=== PATIENT | female | born 1990 | race Caucasian/White ===

== ENCOUNTER 2017-07-01 06:23 | Emergency (ER) | payer SELFPAY ==
[~2017-07-01] VITALS: Ht 167.6 cm; Wt 59.0 kg
[2017-07-01 06:54] LABS: BILIRUBIN NEGATIVE (NEGATIVE); BLOOD TRACE-INTACT (NEGATIVE); CLARITY CLOUDY (CLEAR); COLOR YELLOW (YELLOW); GLUCOSE NEGATIVE (NEGATIVE); KETONE NEGATIVE (NEGATIVE); LEUKO ESTERASE NEGATIVE (NEGATIVE); NITRITE NEGATIVE (NEGATIVE); UROBILINOGEN 0.2 E.U./dl (0.2-1.0)
[2017-07-01 07:09] LABS: URINE AMPHETAMINES < 1000 (1000ng/ml); URINE BARBITURATES < 200 (200ng/ml); URINE BENZODIAZEPINES < 200 (200ng/ml); URINE CANNABINOIDS (THC) < 50 (50ng/ml); URINE COCAINE < 300 (300ng/ml); URINE METHADONE < 300 (300ng/ml); URINE OPIATES < 300 (300ng/ml)
[2017-07-01 07:13] LABS: BACTERIA 2+; MUCOUS 2+; RBC 16-20 rbc/hpf (0-2)
[2017-07-01 07:18] LABS: BASO % 0.1 % (0.0-1.0); EOS % 0.2 % (1.0-4.0); HEMOGLOBIN 14.7 g/dl (12.0-16.0); LYMPH # 2.1 10*3/uL (1.3-4.4); LYMPH % 15.1 % (27.0-41.0); MEAN CELL VOLUME 94.4 fl (81.0-99.0); MEAN PLATELET VOLUME 9.1 fl (9.6-12.3); MONO # 0.9 10*3/uL (0.1-1.0); MONO % 6.3 % (3.0-9.0); NEUT # 10.9 10*3/uL (2.3-7.9); NEUT % 77.7 % (47.0-73.0); PLATELET COUNT AUTOMATED 239 10*3/uL (130-400); RED BLOOD COUNT 4.45 10*6/uL (4.10-5.10); RED CELL DISTRI WIDTH 12.8 % (0-14.5)
[2017-07-01 07:20] LABS: URINE PHENCYCLIDINE < 25 (25ng/ml)
[2017-07-01 07:28] LABS: ACT PARTIAL THROMBO TIME 21.6 SECONDS (20.8-31.5)
[2017-07-01 07:31] LABS: ALBUMIN 3.9 gm/dl (3.1-4.5); ALKALINE PHOSPHATASE 65 U/L (45-117); BUN 11 mg/dl (7-24); CHLORIDE 107 mmol/L (98-107); CREATININE 0.85 mg/dL (0.55-1.02); POTASSIUM 3.8 mmol/L (3.5-5.1); SGOT/AST 21 IU/L (3-35); SGPT/ALT 19 U/L (12-78); SODIUM 144 mmol/L (136-145); TOTAL PROTEIN 7.3 gm/dL (6.4-8.2)
[2017-07-01 07:40] LABS: B-hCG (QUALITATIVE) NEGATIVE (NEGATIVE); THYROID STIM HORMONE (HS) 0.952 uIU/ml (0.358-4.75)
== END 2017-07-01 10:41 | disposition home or self-care (01) ==
LOC: ED 06:23
PROVIDERS: Emergency Medicine Emergency Medical Services
DX: S01.511A Laceration without foreign body of lip, initial encounter (principal); S09.90XA Unspecified injury of head, initial encounter; F17.200 Nicotine dependence, unspecified, uncomplicated; Y08.89XA Assault by other specified means, initial encounter; Y93.89 Activity, other specified; Y92.89 Other specified places as the place of occurrence of the external cause; Y99.8 Other external cause status

== ENCOUNTER 2019-08-26 12:44 | Emergency (ER) | payer OTHER ==
[~2019-08-26] VITALS: Ht 157.4 cm; Wt 49.9 kg
[~2019-08-26 12:44] MED LIST: ALBUTEROL0.09 MG/A2 IH; BENADRYL ALLERG25 M5 PO; CEPHALEXIN500 M1 PO; DOXYCYCLINE100 M3 PO; IBU800 MG PO; PRENATAL1 TA1 PO; SEPTDS PO; VIBRAMYCIN100 MG PO; ZOFRAN ODT4 MG SL
[2019-09-27] MEDS ORDERED: ELIMITE 5%60 GM T (08:11)
== END 2019-08-26 14:00 | disposition home or self-care (01) ==
LOC: ED 12:44
DX: S93.402A Sprain of unspecified ligament of left ankle, initial encounter (principal); M54.6 Pain in thoracic spine; M25.571 Pain in right ankle and joints of right foot; F17.210 Nicotine dependence, cigarettes, uncomplicated; V80.010A Animal-rider injured by fall from or being thrown from horse in noncollision accident, initial encounter; Y93.89 Activity, other specified; Y92.89 Other specified places as the place of occurrence of the external cause; Y99.8 Other external cause status

== ENCOUNTER 2019-09-02 08:07 | Emergency (ER) | payer OTHER ==
[~2019-09-02] VITALS: Ht 157.4 cm; Wt 53.5 kg
[2019-09-02 09:17] LABS: BILIRUBIN NEGATIVE (NEGATIVE); CLARITY SL CLOUDY (CLEAR); COLOR YELLOW (YELLOW); GLUCOSE NEGATIVE (NEGATIVE); KETONE NEGATIVE (NEGATIVE)
[2019-09-02 09:18] LABS: BACTERIA 2+; BLOOD TRACE-INTACT (NEGATIVE); LEUKO ESTERASE 3+ (NEGATIVE); NITRITE POSITIVE (NEGATIVE); PH 7.5 (5.0-9.0); UROBILINOGEN 0.2 E.U./dl (0.2-1.0); WBC TNTC wbc/hpf (0-5)
[2019-09-02 10:16] LABS: BASO % 0.2 % (0.0-1.0); EOS # 0.1 10*3/uL (0.0-0.4); EOS % 1.3 % (1.0-4.0); HEMATOCRIT 38.5 % (37.0-47.0); HEMOGLOBIN 12.1 g/dl (12.0-16.0); LYMPH # 1.6 10*3/uL (1.3-4.4); LYMPH % 14.6 % (27.0-41.0); MEAN CELL VOLUME 99.2 fl (81.0-99.0); MEAN CORPUSCULAR HGB 31.2 pg (27.0-31.0); MEAN CORPUSCULAR HGB CONC 31.4 g/dl (33.0-37.0); MEAN PLATELET VOLUME 9.4 fl (9.6-12.3); MONO # 0.8 10*3/uL (0.1-1.0); MONO % 7.6 % (3.0-9.0); NEUT # 8.3 10*3/uL (2.3-7.9); NEUT % 75.8 % (47.0-73.0); PLATELET COUNT AUTOMATED 219 10*3/uL (130-400); RED BLOOD COUNT 3.88 10*6/uL (4.10-5.10); RED CELL DISTRI WIDTH 13.1 % (0-14.5)
[2019-09-02 10:31] LABS: ALBUMIN 3.3 gm/dl (3.1-4.5); ALKALINE PHOSPHATASE 66 U/L (45-117); BUN 15 mg/dl (7-24); CHLORIDE 105 mmol/L (98-107); CREATININE 0.94 mg/dL (0.55-1.02); POTASSIUM 5.1 mmol/L (3.5-5.1); SGOT/AST 27 IU/L (3-35); SGPT/ALT 32 U/L (12-78); SODIUM 137 mmol/L (136-145); TOTAL PROTEIN 6.8 gm/dL (6.4-8.2)
[2019-09-02] MEDS ORDERED: SEPTDS PO (11:30)
[2019-09-27] MEDS ORDERED: ELIMITE 5%60 GM T (08:11)
== END 2019-09-02 11:45 | disposition home or self-care (01) ==
LOC: ED 08:07
PROVIDERS: Emergency Medicine; Nurse Practitioner Family
DX: N12 Tubulo-interstitial nephritis, not specified as acute or chronic (principal); F17.210 Nicotine dependence, cigarettes, uncomplicated; Z87.442 Personal history of urinary calculi; Z79.2 Long term (current) use of antibiotics

== ENCOUNTER 2019-09-05 20:39 | Emergency (ER) | payer OTHER ==
[~2019-09-05] VITALS: Ht 162.5 cm; Wt 56.7 kg
[2019-09-05 21:07] LABS: BASO % 0.2 % (0.0-1.0); EOS # 0.2 10*3/uL (0.0-0.4); EOS % 1.7 % (1.0-4.0); HEMATOCRIT 38.6 % (37.0-47.0); HEMOGLOBIN 12.5 g/dl (12.0-16.0); LYMPH # 4.1 10*3/uL (1.3-4.4); LYMPH % 45.7 % (27.0-41.0); MEAN CELL VOLUME 97.7 fl (81.0-99.0); MEAN CORPUSCULAR HGB 31.6 pg (27.0-31.0); MEAN CORPUSCULAR HGB CONC 32.4 g/dl (33.0-37.0); MEAN PLATELET VOLUME 9.2 fl (9.6-12.3); MONO # 0.5 10*3/uL (0.1-1.0); MONO % 5.6 % (3.0-9.0); NEUT # 4.1 10*3/uL (2.3-7.9); NEUT % 46.2 % (47.0-73.0); PLATELET COUNT AUTOMATED 341 10*3/uL (130-400); RED BLOOD COUNT 3.95 10*6/uL (4.10-5.10); RED CELL DISTRI WIDTH 12.9 % (0-14.5); WHITE BLOOD COUNT 8.9 10*3/uL (4.8-10.8)
[2019-09-05 21:24] LABS: ALBUMIN 3.6 gm/dl (3.1-4.5); ALKALINE PHOSPHATASE 85 U/L (45-117); BUN 10 mg/dl (7-24); CHLORIDE 110 mmol/L (98-107); CREATININE 0.87 mg/dL (0.55-1.02); POTASSIUM 3.7 mmol/L (3.5-5.1); SGOT/AST 23 IU/L (3-35); SGPT/ALT 52 U/L (12-78); SODIUM 143 mmol/L (136-145); TOTAL PROTEIN 7.4 gm/dL (6.4-8.2)
[2019-09-05 21:27] LABS: ACETAMINOPHEN (TYLENOL) < 5.0 ug/ml (10-30)
[2019-09-27] MEDS ORDERED: ELIMITE 5%60 GM T (08:11)
== END 2019-09-06 03:45 | disposition left against medical advice (07) ==
LOC: ED 20:39
PROVIDERS: Emergency Medicine
DX: R45.851 Suicidal ideations (principal); F15.10 Other stimulant abuse, uncomplicated; F11.10 Opioid abuse, uncomplicated; F10.920 Alcohol use, unspecified with intoxication, uncomplicated; F17.200 Nicotine dependence, unspecified, uncomplicated; Z53.29 Procedure and treatment not carried out because of patient's decision for other reasons

== ENCOUNTER 2019-09-06 01:50 | Emergency (ER) | payer OTHER ==
[~2019-09-06] VITALS: Wt 59.0 kg
[2019-09-27] MEDS ORDERED: ELIMITE 5%60 GM T (08:11)
== END 2019-09-06 10:14 ==
LOC: ED 02:15
DX: F10.10 Alcohol abuse, uncomplicated (principal); F17.200 Nicotine dependence, unspecified, uncomplicated; Y90.0 Blood alcohol level of less than 20 mg/100 ml

== ENCOUNTER 2019-09-24 10:31 | Emergency (ER) | payer OTHER ==
[~2019-09-24] VITALS: Ht 157.4 cm; Wt 54.4 kg
[2019-09-24] MEDS ORDERED: ELIMITE 5%60 GM T ×2 (11:11→17:29)
[2019-09-27] MEDS ORDERED: ELIMITE 5%60 GM T (08:11)
== END 2019-09-24 11:33 | disposition home or self-care (01) ==
LOC: ED 10:31
DX: B86 Scabies (principal); F15.90 Other stimulant use, unspecified, uncomplicated; F11.90 Opioid use, unspecified, uncomplicated; F17.200 Nicotine dependence, unspecified, uncomplicated

== ENCOUNTER 2019-09-29 09:06 | Inpatient (IN) | payer OTHER ==
[~2019-09-29] VITALS: Ht 157.4 cm; Wt 59.1 kg
[~2019-09-29 09:06] MED LIST changes: +ELIMITE 5%60 GM T
[2019-09-29 09:14] VITALS: BP 114/73
[2019-09-29 09:59] LABS: BASO % 0.2 % (0.0-1.0); EOS # 0.2 10*3/uL (0.0-0.4); HEMATOCRIT 37.3 % (37.0-47.0); HEMOGLOBIN 11.9 g/dl (12.0-16.0); LYMPH # 1.2 10*3/uL (1.3-4.4); LYMPH % 9.5 % (27.0-41.0); MEAN CELL VOLUME 99.5 fl (81.0-99.0); MEAN CORPUSCULAR HGB 31.7 pg (27.0-31.0); MEAN CORPUSCULAR HGB CONC 31.9 g/dl (33.0-37.0); MEAN PLATELET VOLUME 9.6 fl (9.6-12.3); MONO % 7.8 % (3.0-9.0); NEUT # 9.7 10*3/uL (2.3-7.9); PLATELET COUNT AUTOMATED 250 10*3/uL (130-400); RED BLOOD COUNT 3.75 10*6/uL (4.10-5.10); WHITE BLOOD COUNT 12.2 10*3/uL (4.8-10.8)
[2019-09-29 10:05] LABS: BILIRUBIN NEGATIVE (NEGATIVE); BLOOD 1+ (NEGATIVE); CLARITY CLOUDY (CLEAR); COLOR STRAW (YELLOW); GLUCOSE NEGATIVE (NEGATIVE); KETONE NEGATIVE (NEGATIVE)
[2019-09-29 10:06] LABS: BACTERIA 3+; LEUKO ESTERASE NEGATIVE (NEGATIVE); NITRITE NEGATIVE (NEGATIVE); PH 7.5 (5.0-9.0); RBC 16-20 rbc/hpf (0-2); UROBILINOGEN 0.2 E.U./dl (0.2-1.0); WBC TNTC wbc/hpf (0-5)
[2019-09-29 10:14] LABS: ALBUMIN 3.1 gm/dl (3.1-4.5); ALKALINE PHOSPHATASE 68 U/L (45-117); BUN 11 mg/dl (7-24); CHLORIDE 103 mmol/L (98-107); CREATININE 0.77 mg/dL (0.55-1.02); LIPASE 129 U/L (73-393); POTASSIUM 3.9 mmol/L (3.5-5.1); SGOT/AST 15 IU/L (3-35); SGPT/ALT 23 U/L (12-78); SODIUM 137 mmol/L (136-145); TOTAL PROTEIN 6.6 gm/dL (6.4-8.2)
--- NOTE | 2019-09-29 10:59 | NUR ---
PT IS CURRENTLY HOMELESS. I HAVE TALKED TO MELBA BOLDEN AND SHE HAS PROVIDED ME WITH PHONE NUMBERS FOR PT TO CALL. SHE WILL NOT QUALIFY FOR SHELTERS SHE DOES NOT HAVE A PHOTO ID. THIS WAS EXPLAINED TO THE PT AND SHE WAS PROVIDED WITH THE PHONE NUMBERS.
[2019-09-29 12:38] LABS: URINE AMPHETAMINES < 1000 (1000ng/ml); URINE BARBITURATES < 200 (200ng/ml); URINE BENZODIAZEPINES < 200 (200ng/ml); URINE CANNABINOIDS (THC) > 50 (50ng/ml); URINE COCAINE > 300 (300ng/ml); URINE METHADONE < 300 (300ng/ml); URINE OPIATES < 300 (300ng/ml)
[2019-09-29 12:42] VITALS: BP 103/57
[2019-09-29 12:42] LABS: URINE PHENCYCLIDINE < 25 (25ng/ml)
[2019-09-29 12:51] LABS: ACETAMINOPHEN (TYLENOL) < 5.0 ug/ml (10-30); ETHYL ALCOHOL < 3.0 mg/dl (<3)
--- NOTE | 2019-09-29 12:59 | NUR ---
MSTime: 1:01 A 29 year old FEMALE admitted to 5E under services of EDDA HARE DO. Pt. arrived via bed from ER. Chief complaint: UTI, OPIATE WITHDRAWAL. CARLY BLOCK.
--- NOTE | 2019-09-29 14:00 | NUR ---
THIS NURSE SPOKE WITH MUSTAPHA FROM INFECTION CONTROL REGARDING HISTORY OF SCABIES AND ON TREATMENT CURRENTLY. PATIENT IS TO BE IN CONTACT ISOLATION UNTIL SHE APPLIES ELIMITE CREAM PER ORDER AND AFTER SHE SHOWERS SHE CAN BE OUT OF ISOLATION PER INFECTION CONTROL.
[2019-09-29 16:00] VITALS: BP 122/60
--- NOTE | 2019-09-29 16:08 | NUR ---
PATIENT MEETS [facility]. [facility] STAFF PROVIDED PATIENT WITH REFERRAL OPTIONS. PATIENT IS WANTING RESIDENTIAL TREATMENT FOR HER AFTERCARE PLAN. ZULLY VELEZ B.A. PLANT CONTROLLER
--- NOTE | 2019-09-29 17:05 | NUR ---
Patient displaying withdrawal symptoms, including: irritability, anxiousness, restlessness and agitation, complicated by impulsive behavior. Patient scores a 5 on the withdrawal scale. Scheduled/PRN medications provided, doctor notified of patient's agitation and AMA potential. Will continue to monitor medication effectiveness.
[2019-09-29 20:00] VITALS: BP 125/74
[2019-09-30] VITALS: BP 107/86
[2019-09-30 08:00] VITALS: BP 95/51
[2019-09-30 12:00] VITALS: BP 110/60
--- NOTE | 2019-09-30 14:48 | NUR ---
[facility] STAFF IN TO SEE PATIENT. PATIENT IS WANTING RESIDENTIAL TREATMENT. [facility] STAFF IS WORKING ON REFERRAL OPTIONS FOR PATIENT TO SEE WHAT IS AVAILABLE. ZULLY VELEZ B.A. ARTIFICIAL STONE APPLICATOR
[2019-09-30 16:00] VITALS: BP 107/50
--- NOTE | 2019-09-30 16:42 | NUR ---
PT WAS ALERT AND ORIENTED THIS MORNING AND EATING BREAKFAST. PT HAD VISTER AROUND 10 AM. WHEN VISITOR LEFT PATIENT WAS OBSERVED BEHAVING IN A HYPER MANNER CLEANING HER ROOM GOING IN AND OUT. MEANWHILE GERIR IN ROOM 20 CAME BACK FROM DIALYSIS AND NOTED HIS PHONE WAS MISSING AROUND 11:45. MEANWHILE PATIENT THIS PATIENT IN 419 WAS WONDERING IN AND OUT OF HER ROOM SHE SUDDENLY STATED SHE FOUND HIS PHONE VIBRATING ON THE HOUSEKEEPING CART AND ABRUPTLY RETURNED IT. NUCLEAR WASTE MANAGEMENT ENGINEER MELBA WAS NOTIFIED. SECURITY FOOTAGE WAS VIEWED AND THIS PATIENT WAS OBSERVED GOING INTO AND OUT OF [address] OTHER ROOMS. THE PATIENT BECAME AGITATED WHEN I ADVISED HER SHE WAS NOT PERMITTED TO WONDER THE HALLS (PRIOR TO SECURITY VIDEO OBSERVATION). SHE STATED SHE WAS FEELING WITHDRAWAL SYMPTOMS AND I THEN GAVE HER HER PERSCRIBED MEDICATIONS TO AID WITH HER SYMPTOMS. THE PATIENT BECAME RELAXED. AFTER SECURITY FOOTAGE WAS VIEWED NUCLEAR WASTE MANAGEMENT ENGINEER ZULLY REILLY FROM [employer] AND MYSELF INFORMED THE PATIENT THAT SHE MUST BE DISCHARGED DUE TO NONCOMPLIANCE OF HOSPITAL POLICY. THE PATIENT WHO WAS ALERT AND ORIENTED X3 AND AWARE OF HER SURROUNDINGS THEN BECAME AGITATED AND INCOSOLABLE. AFTER APPROXIMATELY 15 TO 20 MINUTES PATIENT STATED SHE HAD A RIDE AND SHE WAS ESCORTED FROM THE BUILDING BY SECURITY. SHE WAS ALERT AND ORIENTED AND AMBULATORY UPON DISCHARGE.
== END 2019-09-30 16:42 | disposition other institution (70) | DRG 463 ==
LOC: ED 09:06 → 5E 12:26 → EDHOLD 12:26 → 5E 12:40
PROVIDERS: Nurse Practitioner Family; ADMIT Family Medicine
DX: N30.00 Acute cystitis without hematuria (principal); F11.23 Opioid dependence with withdrawal; F13.10 Sedative, hypnotic or anxiolytic abuse, uncomplicated; F19.10 Other psychoactive substance abuse, uncomplicated; B86 Scabies; F10.21 Alcohol dependence, in remission; F17.210 Nicotine dependence, cigarettes, uncomplicated; F14.10 Cocaine abuse, uncomplicated; F41.9 Anxiety disorder, unspecified; F43.10 Post-traumatic stress disorder, unspecified; F90.9 Attention-deficit hyperactivity disorder, unspecified type; D64.9 Anemia, unspecified; I95.9 Hypotension, unspecified; E44.0 Moderate protein-calorie malnutrition; Z68.23 Body mass index [BMI] 23.0-23.9, adult; Z71.6 Tobacco abuse counseling; Z59.0 Homelessness

== ENCOUNTER 2020-01-13 21:53 | Emergency (ER) | payer OTHER ==
[~2020-01-13] VITALS: Ht 157.4 cm; Wt 59.9 kg
[2020-01-13 22:53] LABS: URINE AMPHETAMINES < 1000 (1000ng/ml); URINE BARBITURATES < 200 (200ng/ml); URINE BENZODIAZEPINES < 200 (200ng/ml); URINE CANNABINOIDS (THC) < 50 (50ng/ml); URINE COCAINE < 300 (300ng/ml); URINE METHADONE < 300 (300ng/ml); URINE OPIATES < 300 (300ng/ml)
[2020-01-13 22:56] LABS: URINE PHENCYCLIDINE < 25 (25ng/ml)
== END 2020-01-13 23:38 | disposition home or self-care (01) ==
LOC: ED 21:53
PROVIDERS: Nurse Practitioner Family
DX: Z01.89 Encounter for other specified special examinations (principal); F17.210 Nicotine dependence, cigarettes, uncomplicated

== ENCOUNTER 2020-01-14 14:34 | Emergency (ER) | payer OTHER ==
[~2020-01-14] VITALS: Ht 157.4 cm; Wt 59.0 kg
[2020-01-14 15:32] LABS: BASO % 0.6 % (0.0-1.0); EOS # 0.3 10*3/uL (0.0-0.4); EOS % 6.3 % (1.0-4.0); HEMATOCRIT 39.4 % (37.0-47.0); LYMPH # 1.8 10*3/uL (1.3-4.4); LYMPH % 35.7 % (27.0-41.0); MEAN CELL VOLUME 94.5 fl (81.0-99.0); MEAN CORPUSCULAR HGB 31.4 pg (27.0-31.0); MEAN CORPUSCULAR HGB CONC 33.2 g/dl (33.0-37.0); MEAN PLATELET VOLUME 8.7 fl (9.6-12.3); MONO # 0.3 10*3/uL (0.1-1.0); MONO % 6.5 % (3.0-9.0); NEUT # 2.5 10*3/uL (2.3-7.9); NEUT % 50.5 % (47.0-73.0); PLATELET COUNT AUTOMATED 206 10*3/uL (130-400); RED BLOOD COUNT 4.17 10*6/uL (4.10-5.10); RED CELL DISTRI WIDTH 13.4 % (0-14.5)
[2020-01-14 15:46] LABS: ALBUMIN 3.6 gm/dl (3.1-4.5); ALKALINE PHOSPHATASE 70 U/L (45-117); BUN 15 mg/dl (7-24); CHLORIDE 107 mmol/L (98-107); CREATININE 0.98 mg/dL (0.55-1.02); POTASSIUM 4.1 mmol/L (3.5-5.1); SGOT/AST 11 IU/L (3-35); SGPT/ALT 18 U/L (12-78); SODIUM 141 mmol/L (136-145); TOTAL PROTEIN 7.1 gm/dL (6.4-8.2)
[2020-01-14 15:50] LABS: BETA-HCG, QUANT < 1.0 mIU/mL (1-3); ETHYL ALCOHOL < 3.0 mg/dl (<3)
[2020-01-14 16:29] LABS: URINE AMPHETAMINES < 1000 (1000ng/ml); URINE BARBITURATES < 200 (200ng/ml); URINE BENZODIAZEPINES < 200 (200ng/ml); URINE CANNABINOIDS (THC) < 50 (50ng/ml); URINE COCAINE < 300 (300ng/ml); URINE METHADONE < 300 (300ng/ml); URINE OPIATES < 300 (300ng/ml); URINE PHENCYCLIDINE < 25 (25ng/ml)
== END 2020-01-14 23:40 | disposition home health service (06) ==
LOC: ED 14:34
PROVIDERS: Emergency Medicine
DX: F31.9 Bipolar disorder, unspecified (principal); Z79.899 Other long term (current) drug therapy

== ENCOUNTER 2020-01-27 16:56 | Emergency (ER) | payer OTHER ==
[~2020-01-27] VITALS: Ht 157.4 cm; Wt 61.2 kg
[2020-01-27 18:12] LABS: BACTERIA TRACE; BILIRUBIN NEGATIVE (NEGATIVE); BLOOD NEGATIVE (NEGATIVE); CLARITY CLEAR (CLEAR); COLOR YELLOW (YELLOW); GLUCOSE NEGATIVE (NEGATIVE); KETONE NEGATIVE (NEGATIVE); LEUKO ESTERASE NEGATIVE (NEGATIVE); MUCOUS TRACE; NITRITE NEGATIVE (NEGATIVE); RBC 0-2 rbc/hpf (0-2); SPECIFIC GRAVITY 1.025 (1.005-1.030); UROBILINOGEN 0.2 E.U./dl (0.2-1.0)
[2020-01-27 18:14] LABS: URINE AMPHETAMINES < 1000 (1000ng/ml); URINE BARBITURATES < 200 (200ng/ml); URINE BENZODIAZEPINES < 200 (200ng/ml); URINE CANNABINOIDS (THC) < 50 (50ng/ml); URINE COCAINE < 300 (300ng/ml); URINE METHADONE < 300 (300ng/ml); URINE OPIATES < 300 (300ng/ml)
[2020-01-27 18:18] LABS: URINE PHENCYCLIDINE < 25 (25ng/ml)
[2020-01-27] MEDS ORDERED: SEPTDS PO (19:19)
[2020-01-27] MEDS ORDERED: KEFLEX500 M1 PO (19:19)
== END 2020-01-27 20:33 | disposition left against medical advice (07) ==
LOC: ED 16:56
PROVIDERS: Nurse Practitioner
DX: S01.111A Laceration without foreign body of right eyelid and periocular area, initial encounter (principal); F17.210 Nicotine dependence, cigarettes, uncomplicated; V29.9XXA Motorcycle rider (driver) (passenger) injured in unspecified traffic accident, initial encounter; Y93.89 Activity, other specified; Y92.89 Other specified places as the place of occurrence of the external cause; Y99.8 Other external cause status

== ENCOUNTER 2020-04-03 22:09 | Emergency (ER) | payer OTHER ==
[~2020-04-03] VITALS: Ht 165.1 cm; Wt 54.4 kg
[~2020-04-03 22:09] MED LIST changes: +KEFLEX500 M1 PO
[2020-04-04] MEDS ORDERED: CEPHALEXIN500 M1 PO (16:46)
[2020-04-04] MEDS ORDERED: BACITRACIN28.4 GM T (16:46)
== END 2020-04-03 23:38 | disposition left against medical advice (07) ==
LOC: ED 22:09
DX: R10.9 Unspecified abdominal pain (principal); F41.9 Anxiety disorder, unspecified; F32.9 Major depressive disorder, single episode, unspecified; F17.200 Nicotine dependence, unspecified, uncomplicated; Z79.899 Other long term (current) drug therapy

== ENCOUNTER 2020-04-04 15:57 | Emergency (ER) | payer OTHER ==
[~2020-04-04] VITALS: Wt 56.7 kg
[2020-04-04] MEDS ORDERED: CEPHALEXIN500 M1 PO (16:46)
[2020-04-04] MEDS ORDERED: BACITRACIN28.4 GM T (16:46)
== END 2020-04-04 16:50 | disposition home or self-care (01) ==
LOC: ED 15:57
DX: T28.0XXA Burn of mouth and pharynx, initial encounter (principal); F15.10 Other stimulant abuse, uncomplicated; F14.10 Cocaine abuse, uncomplicated; F17.210 Nicotine dependence, cigarettes, uncomplicated; X08.8XXA Exposure to other specified smoke, fire and flames, initial encounter; Y93.89 Activity, other specified; Y92.89 Other specified places as the place of occurrence of the external cause; Y99.8 Other external cause status

== ENCOUNTER 2020-05-19 18:58 | Emergency (ER) | payer OTHER ==
[~2020-05-19] VITALS: Ht 157.4 cm; Wt 56.7 kg
[~2020-05-19 18:58] MED LIST changes: +BACITRACIN28.4 GM T
[2020-05-19 19:57] LABS: BASO % 0.4 % (0.0-1.0); EOS # 0.2 10*3/uL (0.0-0.4); EOS % 3.5 % (1.0-4.0); HEMATOCRIT 37.2 % (37.0-47.0); LYMPH # 2.2 10*3/uL (1.3-4.4); LYMPH % 40.1 % (27.0-41.0); MEAN CORPUSCULAR HGB 31.3 pg (27.0-31.0); MEAN CORPUSCULAR HGB CONC 35.2 g/dl (33.0-37.0); MEAN PLATELET VOLUME 9.3 fl (9.6-12.3); MONO # 0.7 10*3/uL (0.1-1.0); MONO % 12.3 % (3.0-9.0); NEUT # 2.4 10*3/uL (2.3-7.9); NEUT % 43.5 % (47.0-73.0); PLATELET COUNT AUTOMATED 344 10*3/uL (130-400); RED BLOOD COUNT 4.18 10*6/uL (4.10-5.10); RED CELL DISTRI WIDTH 12.3 % (0-14.5); WHITE BLOOD COUNT 5.4 10*3/uL (4.8-10.8)
[2020-05-19 20:13] LABS: ALBUMIN 3.9 gm/dl (3.1-4.5); ALKALINE PHOSPHATASE 63 U/L (45-117); BUN 9 mg/dl (7-24); CHLORIDE 103 mmol/L (98-107); CREATININE 1.09 mg/dL (0.55-1.02); LIPASE 64 U/L (73-393); POTASSIUM 2.7 mmol/L (3.5-5.1); SGOT/AST 24 IU/L (3-35); SGPT/ALT 30 U/L (12-78); SODIUM 139 mmol/L (136-145); TOTAL PROTEIN 7.3 gm/dL (6.4-8.2)
[2020-05-19 20:14] LABS: BETA-HCG, QUANT < 1.0 mIU/mL (1-3); ETHYL ALCOHOL < 3.0 mg/dl (<3)
[2020-05-24] MEDS ORDERED: ZOFRAN4 MG PO (16:48)
[2020-05-24] MEDS ORDERED: SEPTDS PO (16:48)
== END 2020-05-19 22:30 | disposition left against medical advice (07) ==
LOC: ED 18:58
PROVIDERS: Emergency Medicine Emergency Medical Services
DX: R10.13 Epigastric pain (principal); Z53.29 Procedure and treatment not carried out because of patient's decision for other reasons

== ENCOUNTER 2020-05-20 00:21 | Emergency (ER) | payer OTHER ==
[~2020-05-20] VITALS: Ht 157.4 cm; Wt 63.5 kg
[2020-05-20 01:45] LABS: BILIRUBIN Negative (Negative); BLOOD 1+ (Negative); COLOR Yellow (Yellow); GLUCOSE Negative (Negative); KETONE 2+ (Negative); LEUKO ESTERASE Negative (Negative); NITRITE Negative (Negative)
[2020-05-20 01:48] LABS: PH 8.5 (4.5-8.0)
[2020-05-20 01:50] LABS: CLARITY Cloudy (Clear)
[2020-05-20 01:54] LABS: URINE AMPHETAMINES > 1000 (1000ng/ml); URINE BARBITURATES < 200 (200ng/ml); URINE BENZODIAZEPINES < 200 (200ng/ml); URINE CANNABINOIDS (THC) > 50 (50ng/ml); URINE COCAINE < 300 (300ng/ml); URINE METHADONE < 300 (300ng/ml); URINE OPIATES < 300 (300ng/ml)
[2020-05-20 01:55] LABS: BACTERIA 1+; MUCOUS 2+; URINE PHENCYCLIDINE < 25 (25ng/ml)
[2020-05-21] MEDS ORDERED: SEPTDS PO (15:57)
[2020-05-21] MEDS ORDERED: ZOFRAN4 MG PO (15:57)
[2020-05-24] MEDS ORDERED: ZOFRAN4 MG PO (16:48)
[2020-05-24] MEDS ORDERED: SEPTDS PO (16:48)
== END 2020-05-20 02:40 ==
LOC: ED 00:21
PROVIDERS: Emergency Medicine Emergency Medical Services
DX: R10.9 Unspecified abdominal pain (principal); Z53.29 Procedure and treatment not carried out because of patient's decision for other reasons

== ENCOUNTER 2020-05-21 10:48 | Emergency (ER) | payer OTHER ==
[~2020-05-21] VITALS: Ht 157.4 cm; Wt 63.5 kg
[2020-05-21 11:51] LABS: BASO % 0.4 % (0.0-1.0); EOS # 0.4 10*3/uL (0.0-0.4); EOS % 7.7 % (1.0-4.0); HEMATOCRIT 39.4 % (37.0-47.0); LYMPH # 2.3 10*3/uL (1.3-4.4); LYMPH % 41.1 % (27.0-41.0); MEAN CORPUSCULAR HGB CONC 34.3 g/dl (33.0-37.0); MEAN PLATELET VOLUME 9.4 fl (9.6-12.3); MONO # 0.5 10*3/uL (0.1-1.0); MONO % 8.8 % (3.0-9.0); NEUT # 2.3 10*3/uL (2.3-7.9); NEUT % 41.6 % (47.0-73.0); PLATELET COUNT AUTOMATED 272 10*3/uL (130-400); RED BLOOD COUNT 4.22 10*6/uL (4.10-5.10); RED CELL DISTRI WIDTH 12.9 % (0-14.5); WHITE BLOOD COUNT 5.6 10*3/uL (4.8-10.8)
[2020-05-21 11:52] LABS: MEAN CELL VOLUME 93.4 fl (81.0-99.0)
[2020-05-21 11:56] LABS: ALBUMIN 3.6 gm/dl (3.1-4.5); ALKALINE PHOSPHATASE 62 U/L (45-117); BUN 11 mg/dl (7-24); CHLORIDE 105 mmol/L (98-107); POTASSIUM 2.8 mmol/L (3.5-5.1); SGOT/AST 19 IU/L (3-35); SGPT/ALT 26 U/L (12-78); SODIUM 140 mmol/L (136-145)
[2020-05-21 13:32] LABS: BILIRUBIN Negative (Negative); BLOOD 1+ (Negative); CLARITY Cloudy (Clear); COLOR Dark Yellow (Yellow); GLUCOSE Negative (Negative); KETONE Trace (Negative); LEUKO ESTERASE Negative (Negative); NITRITE Negative (Negative); PH 5.5 (4.5-8.0); SPECIFIC GRAVITY >= 1.030 (1.001-1.030)
[2020-05-21 13:39] LABS: MUCOUS 1+; RBC 0-2 rbc/hpf (0-2)
[2020-05-21 13:46] LABS: URINE AMPHETAMINES > 1000 (1000ng/ml); URINE BARBITURATES < 200 (200ng/ml); URINE BENZODIAZEPINES < 200 (200ng/ml); URINE CANNABINOIDS (THC) > 50 (50ng/ml); URINE COCAINE < 300 (300ng/ml); URINE METHADONE < 300 (300ng/ml); URINE OPIATES > 300 (300ng/ml)
[2020-05-21 13:47] LABS: URINE PHENCYCLIDINE < 25 (25ng/ml)
[2020-05-21] MEDS ORDERED: ZOFRAN4 MG PO (15:57)
[2020-05-21] MEDS ORDERED: SEPTDS PO (15:57)
[2020-05-24] MEDS ORDERED: SEPTDS PO (16:48)
[2020-05-24] MEDS ORDERED: ZOFRAN4 MG PO (16:48)
== END 2020-05-21 16:02 | disposition home or self-care (01) ==
LOC: ED 10:48
PROVIDERS: Emergency Medicine
DX: K29.70 Gastritis, unspecified, without bleeding (principal); L08.9 Local infection of the skin and subcutaneous tissue, unspecified; F17.210 Nicotine dependence, cigarettes, uncomplicated

== ENCOUNTER 2020-09-19 05:16 | Emergency (ER) | payer OTHER ==
[~2020-09-19] VITALS: Ht 167.6 cm; Wt 52.2 kg
[~2020-09-19 05:16] MED LIST changes: +ZOFRAN4 MG PO
[2020-09-19 06:47] LABS: BILIRUBIN Negative (Negative); BLOOD Negative (Negative); CLARITY Clear (Clear); COLOR Yellow (Yellow); GLUCOSE Negative (Negative); KETONE Trace (Negative); LEUKO ESTERASE Negative (Negative); NITRITE Negative (Negative); PH 6.5 (4.5-8.0); SPECIFIC GRAVITY <= 1.005 (1.001-1.030); UROBILINOGEN 0.2 E.U./dl (0.0-1.0)
[2020-09-19 06:55] LABS: URINE AMPHETAMINES < 1000 (1000ng/ml); URINE BARBITURATES < 200 (200ng/ml); URINE BENZODIAZEPINES < 200 (200ng/ml); URINE CANNABINOIDS (THC) < 50 (50ng/ml); URINE COCAINE < 300 (300ng/ml); URINE METHADONE < 300 (300ng/ml); URINE OPIATES < 300 (300ng/ml)
[2020-09-19 06:56] LABS: URINE PHENCYCLIDINE < 25 (25ng/ml)
[2020-09-19 07:17] LABS: BASO % 0.3 % (0.0-1.0); EOS # 0.1 10*3/uL (0.0-0.4); EOS % 3.8 % (1.0-4.0); HEMATOCRIT 35.4 % (37.0-47.0); LYMPH # 1.8 10*3/uL (1.3-4.4); LYMPH % 48.7 % (27.0-41.0); MEAN CELL VOLUME 89.8 fl (81.0-99.0); MEAN CORPUSCULAR HGB CONC 35.6 g/dl (33.0-37.0); MEAN PLATELET VOLUME 9.3 fl (9.6-12.3); MONO # 0.3 10*3/uL (0.1-1.0); MONO % 8.3 % (3.0-9.0); NEUT # 1.4 10*3/uL (2.3-7.9); NEUT % 38.6 % (47.0-73.0); PLATELET COUNT AUTOMATED 236 10*3/uL (130-400); RED BLOOD COUNT 3.94 10*6/uL (4.10-5.10); RED CELL DISTRI WIDTH 12.8 % (0-14.5); WHITE BLOOD COUNT 3.7 10*3/uL (4.8-10.8)
[2020-09-19 07:36] LABS: ALBUMIN 3.8 gm/dl (3.1-4.5); ALKALINE PHOSPHATASE 55 U/L (45-117); BUN 6 mg/dl (7-24); CHLORIDE 100 mmol/L (98-107); CREATININE 0.74 mg/dL (0.55-1.02); POTASSIUM 2.9 mmol/L (3.5-5.1); SGOT/AST 43 IU/L (3-35); SGPT/ALT 25 U/L (12-78); SODIUM 136 mmol/L (136-145); TOTAL PROTEIN 6.4 gm/dL (6.4-8.2)
[2020-09-19 07:37] LABS: ACETAMINOPHEN (TYLENOL) < 5.0 ug/ml (10-30)
[2020-09-19 07:49] LABS: CPK 1019 U/L (26-192)
== END 2020-09-19 15:55 ==
LOC: ED 05:16
PROVIDERS: Internal Medicine
DX: S51.812A Laceration without foreign body of left forearm, initial encounter (principal); F25.9 Schizoaffective disorder, unspecified; F32.9 Major depressive disorder, single episode, unspecified; F41.9 Anxiety disorder, unspecified; Z20.822 Contact with and (suspected) exposure to COVID-19; Z79.2 Long term (current) use of antibiotics; Z79.899 Other long term (current) drug therapy; X78.9XXA Intentional self-harm by unspecified sharp object, initial encounter; Y93.89 Activity, other specified; Y92.098 Other place in other non-institutional residence as the place of occurrence of the external cause; Y99.8 Other external cause status

== ENCOUNTER 2020-11-15 22:44 | Emergency (ER) | payer OTHER ==
[~2020-11-15] VITALS: Wt 53.5 kg
[2020-11-15] MEDS ORDERED: BUPROPION XL300 MG PO (22:56)
== END 2020-11-16 00:05 | disposition left against medical advice (07) ==
LOC: ED 22:44
DX: S01.91XA Laceration without foreign body of unspecified part of head, initial encounter (principal); S09.90XA Unspecified injury of head, initial encounter; Z79.899 Other long term (current) drug therapy; Z98.890 Other specified postprocedural states; W51.XXXA Accidental striking against or bumped into by another person, initial encounter; Y93.89 Activity, other specified; Y92.89 Other specified places as the place of occurrence of the external cause; Y99.8 Other external cause status